=== PATIENT | male | born 1975 | race Native Hawaiian/Other Pacific Islander ===

== ENCOUNTER 2018-08-25 22:24 | Emergency (ER) | payer OTHER ==
--- NOTE | 2018-08-26 00:40 | XRay Report ---
PROCEDURE: LEFT FOREARM TECHNIQUE: LEFT forearm radiographs, AP and lateral views. CPT 05916 HISTORY: Trauma COMPARISONS: None . FINDINGS: Fracture (s) and/or Dislocation(s): None . Joint space(s): Normal . Soft tissues: Normal . Bone mineralization: Normal . Foreign bodies: None . IMPRESSION: Normal Examination . This document is electronically signed by Darell Yadav MD., August 26 2018 12:37:45 AM ET
--- NOTE | 2018-08-26 00:41 | XRay Report ---
PROCEDURE: XR HAND 2V LT TECHNIQUE: LEFT hand radiographs, PA and lateral views. HISTORY: pain and swelling L hand s/p injury COMPARISONS: None . FINDINGS: Fracture (s) and/or Dislocation(s): There is a nondisplaced fracture of the base of the fifth metaca rpal bone. . Alignment: Normal . Joint space(s): Normal . Soft tissues: There is soft tissue swelling of the ulnar aspect of the hand. . Bone mineralization: Normal . Foreign bodies: None . IMPRESSION: There is a nondisplaced fracture of the base of the fifth metacarpal bone. . There is no joint dislocation. There is soft tissue swelling of the ulnar aspect of the hand. . . This document is electronically signed by Darell Yadav MD., August 26 2018 12:39:29 AM ET
--- NOTE | 2018-08-26 00:49 | Emergency Department Report ---
ED Upper Extremity Inj HPI - General Chief Complaint: Extremity Injury, Upper Stated Complaint: LEFT ARM INJURY Time Seen by Provider: 08/26/18 00:43 Source: patient Mode of arrival: Ambulatory Limitations: No Limitations - History of Present Illness Initial Comments: Pt is a 42 yo male who was injured at work today. he is co l arm pain. Complaint: Injury to:: left, arm - Related Data Previous Rx's Medication Instructions Recorded Last Taken Type Ibuprofen [Motrin] 800 mg PO Q8HR PRN #20 tablet 08/26/18 Unknown Rx Allergies Allergy/AdvReac Type Severity Reaction Status Date / Time No Known Allergies Allergy Unverified 08/25/18 22:33 ED Review of Systems ROS: Stated complaint: LEFT ARM INJURY Other details as noted in HPI Comment: All other systems reviewed and negative ED Past Medical Hx - Past Medical History Previous Medical History?: No - Surgical History Past Surgical History?: No - Family History Family history: no significant - Social History Smoking Status: Never Smoker Substance Use Type: Alcohol - Medications Home Medications: Home Medications Medication Instructions Recorded Confirmed Last Taken Type Ibuprofen [Motrin] 800 mg PO Q8HR PRN #20 tablet 08/26/18 Unknown Rx ED Physical Exam - General Limitations: No Limitations General appearance: alert - Head Head exam: Present: atraumatic - Eye Eye exam: Present: normal appearance Pupils: Present: normal accommodation - ENT ENT exam: Present: mucous membranes moist - Neck Neck exam: Present: normal inspection - Cardiovascular Cardiovascular Exam: Present: regular rate - GI/Abdominal GI/Abdominal exam: Present: soft, normal bowel sounds - Expanded Upper Extremity Exam Left Elbow exam: Present: normal inspection Forearm Wrist exam: Present: tenderness, swelling, ecchymosis, erythema Hand Wrist exam: Present: tenderness, swelling, ecchymosis Hand L/R Back: 1 - pain and bruising Vascular: Present: normal capillary refill - Back Exam Back exam: Present: normal inspection - Neurological Exam Neurological exam: Present: alert, oriented X3 - Psychiatric Psychiatric exam: Present: normal affect, normal mood - Skin Skin exam: Present: warm, dry, ecchymosis ED Course Vital Signs 08/25/18 08/26/18 22:34 01:47 Temperature 97.7 F Pulse Rate 89 87 Respiratory 18 18 Rate Blood Pressure 134/91 Blood Pressure 138/93 [Right] O2 Sat by Pulse 97 98 Oximetry ED Medical Decision Making - Radiology Data Radiology results: report reviewed, image reviewed FX - Medical Decision Making xray noted concern for forearm fx as well immobilized hand/arm sling to follow up with ortho neurovasc intact radial and ulna pulse intact rapid cap refill dc home with dc plan of care and ortho follow up Vital Signs 08/25/18 08/26/18 22:34 01:47 Temperature 97.7 F Pulse Rate 89 87 Respiratory 18 18 Rate Blood Pressure 134/91 Blood Pressure 138/93 [Right] O2 Sat by Pulse 97 98 Oximetry Critical care attestation.: If time is entered above; I have spent that time in minutes in the direct care of this critically ill patient, excluding procedure time. ED Disposition Clinical Impression: Hand fracture, left, Contusion, Arm pain, left Disposition: DC-01 TO HOME OR SELFCARE Is pt being admited?: No Does the pt Need Aspirin: No Condition: Stable Instructions: Hand Fracture (ED) Additional Instructions: ICE REST ELEVATE SPLINT AND SLING FOLLOW UP WITH BONE DOCTOR SEE BELOW FOLLOW UP PATO MEDICATION ORDERED TODAY Prescriptions: Ibuprofen [Motrin] 800 mg PO Q8HR PRN #20 tablet PRN Reason: Pain , Severe (7-10) Referrals: ANTHONY ERNST MD [Staff Physician] - 3-5 Days Forms: Work/School Release Form(ED) Time of Disposition: 01:01 Print Language: FIJIAN
[2018-08-26] MEDS ORDERED: NORCO 5/325 PO ONE (00:52)
[2018-08-26 01:48] VITALS: BP 138/93
== END 2018-08-26 01:47 | disposition home or self-care (01) ==
LOC: ED 22:24
DX: S62.92XA Unspecified fracture of left hand, initial encounter for closed fracture (principal); M79.602 Pain in left arm; X58.XXXA Exposure to other specified factors, initial encounter; Y93.89 Activity, other specified; Y92.69 Other specified industrial and construction area as the place of occurrence of the external cause; Y99.0 Civilian activity done for income or pay

== ENCOUNTER 2018-12-13 14:03 | Emergency (ER) | payer SELFPAY ==
[2018-12-13 15:04] VITALS: BP 115/70
--- NOTE | 2018-12-13 15:08 | Event Note ---
ED Screening Note Date of service: 12/13/18 Time: 15:07 ED Screening Note: 43y/o male with a history of HTN and DM has c/o left foot pain after stepping on a nail. This initial assessment/diagnostic orders/clinical plan/treatment(s) is/are subject to change based on patients health status, clinical progression and re- assessment by fellow clinical providers in the ED. Further treatment and workup at subsequent clinical providers discretion. Patient/guardian urged not to elope from the ED as their condition may be serious if not clinically assessed and managed. Initial orders include:
[2018-12-13] MEDS ORDERED: NACL 0.9% 1000 ML 1,000 ML IV ONE ×2 (16:05→17:19)
[2018-12-13] MEDS ORDERED: ROCEPHIN/NS 1 GM/50 ML 1 GM/50 ML BAG IV ONE (16:05)
[2018-12-13 16:11] LABS: Mean Corpuscular HGB Conc 37 % (32-34); Mean Corpuscular Volume 97 fl (84-94); Platelet Count 168 K/mm3 (140-440); Red Blood Count 3.95 M/mm3 (3.65-5.03); Red Cell Distribution Width 12.7 % (13.2-15.2)
[2018-12-13 16:17] LABS: Hematocrit 38.2 % (35.5-45.6)
--- NOTE | 2018-12-13 16:21 | XRay Report ---
LEFT FOOT, 2 VIEWS INDICATION: stepped on nail now have redness and pain. COMPARISON: None. IMPRESSION: No acute osseous or soft tissue abnormality. Mild vascular calcifications are noted i n the distal foot suggesting peripheral vascular disease. No radiopaque foreign body is identified. Signer Name: Pepe Alvarez Jr, MD Signed: 12/13/2018 4:17 PM Workstation Name: [id number]
[2018-12-13 16:37] LABS: Alanine Aminotransferase 25 units/L (7-56); BUN/Creatinine Ratio 10; Blood Urea Nitrogen 5 mg/dL (9-20); Calcium 9.1 mg/dL (8.4-10.2); Hemolysis Index 5
--- NOTE | 2018-12-13 17:05 | Emergency Department Report ---
HPI - General Chief Complaint: Extremity Injury, Lower Time Seen by Provider: 12/13/18 15:53 - HPI HPI: PT IS A 43 YO WITH DM WHO STEPPED ON A NAIL AND SINCE HAS HAD INC FOOT PAIN. AMBULATORY ON ADMIT TO ACC BUT WITH LIMP. PAIN IS CONSTANT AND WORSE WITH WALKING. NOTHING WAS TAKEN HOSPITALITY HOST TO DEC PAIN. ED Past Medical Hx - Past Medical History Previous Medical History?: Yes Hx Hypertension: Yes Hx Diabetes: Yes - Surgical History Past Surgical History?: No - Social History Smoking Status: Never Smoker Substance Use Type: Alcohol - Medications Home Medications: Home Medications Medication Instructions Recorded Confirmed Last Taken Type Clindamycin [Clindamycin CAP] 300 mg PO Q8H #30 cap 12/13/18 Unknown Rx ED Review of Systems ROS: Stated complaint: LFT FOOT NAIL INJURY/PAIN Other details as noted in HPI Comment: All other systems reviewed and negative Physical Exam - Physical Exam Vital Signs: Vital Signs 12/13/18 15:00 Temperature 99.6 F Pulse Rate 111 H Respiratory 16 Rate Blood Pressure 115/70 O2 Sat by Pulse 100 Oximetry Physical Exam: ALERT AND ORIENTED S1S2 LUNGS CTA ABD SNT L FOOT WITH PUNCTURE WOUND TO BOTTOM AT BASE OF GREAT TOE NO DRAINAGE THE L FOOT HAS REDNESS ON THE DORSAL SURFACE. DP/PT PLUS 2 MINIMAL SWELLING CALF NON TENDER RAPID CAP REFILL NO OPEN WOUND ED Course Vital Signs 12/13/18 15:00 Temperature 99.6 F Pulse Rate 111 H Respiratory 16 Rate Blood Pressure 115/70 O2 Sat by Pulse 100 Oximetry ED Medical Decision Making - Lab Data Result diagrams: 12/13/18 15:45 12/13/18 15:45 - Radiology Data Radiology results: report reviewed, image reviewed NO FB - Medical Decision Making Labs 12/13/18 12/13/18 12/13/18 15:14 15:45 15:45 WBC 10.3 RBC 3.95 Hgb 14.0 Hct 38.2 MCV 97 H MCH 36 H MCHC 37 H RDW 12.7 L Plt Count 168 [place] % (Auto) Stoneworking Sander Add Manual Diff Complete Total Counted 100 Seg Neuts % (Manual) 62.0 Band Neutrophils % 0 Lymphocytes % (Manual) 17.0 Reactive Lymphs % (Man) 0 Monocytes % (Manual) 18.0 H Eosinophils % (Manual) 2.0 Basophils % (Manual) 1.0 Metamyelocytes % 0 Myelocytes % 0 Promyelocytes % 0 Blast Cells % 0 Nucleated RBC % Not Reportable Seg Neutrophils # Man 6.4 Band Neutrophils # 0.0 Lymphocytes # (Manual) 1.8 Abs React Lymphs (Man) 0.0 Monocytes # (Manual) 1.9 H Eosinophils # (Manual) 0.2 Basophils # (Manual) 0.1 Metamyelocytes # 0.0 Myelocytes # 0.0 Promyelocytes # 0.0 Blast Cells # 0.0 WBC Morphology Not Reportable Hypersegmented Neuts Not Reportable Hyposegmented Neuts Not Reportable Hypogranular Neuts Not Reportable Smudge Cells Not Reportable Toxic Granulation Not Reportable Toxic Vacuolation Not Reportable Dohle Bodies Not Reportable Pelger-Huet Anomaly Not Reportable [place] Rods Not Reportable Platelet Estimate Not Reportable Clumped Platelets Not Reportable Plt Clumps, EDTA Not Reportable Large Platelets Not Reportable Giant Platelets Not Reportable Platelet Satelliting Not Reportable Plt Morphology Comment Not Reportable RBC Morphology Normal Dimorphic RBCs Not Reportable Polychromasia Not Reportable Hypochromasia Not Reportable Poikilocytosis Not Reportable Anisocytosis Not Reportable Microcytosis Not Reportable Macrocytosis Not Reportable Spherocytes Not Reportable Pappenheimer Bodies Not Reportable Sickle Cells Not Reportable Target Cells Not Reportable Tear Drop Cells Not Reportable Ovalocytes Not Reportable Helmet Cells Not Reportable Velez-Diehlstadt Bodies Not Reportable [place] Rings Not Reportable [place] Cells Not Reportable Bite Cells Not Reportable Crenated Cell Not Reportable Elliptocytes Not Reportable Acanthocytes (Spur) Not Reportable Rouleaux Not Reportable Hemoglobin C Crystals Not Reportable Schistocytes Not Reportable Malaria parasites Not Reportable Angel Luis Bodies Not Reportable Hem Pathologist Commnt No Sodium 128 L Potassium 4.2 Chloride 89.1 L Carbon Dioxide 23 Anion Gap 20 BUN 5 L Creatinine 0.5 L Estimated GFR > 60 BUN/Creatinine Ratio 10 Glucose 318 H POC Glucose 321 H Lactic Acid Calcium 9.1 Total Bilirubin 1.10 AST 30 ALT 25 Alkaline Phosphatase 113 Total Protein 8.3 H Albumin 4.0 Albumin/Globulin Ratio 0.9 12/13/18 15:45 WBC RBC Hgb Hct MCV MCH MCHC RDW Plt Count [place] % (Auto) Add Manual Diff Total Counted Seg Neuts % (Manual) Band Neutrophils % Lymphocytes % (Manual) Reactive Lymphs % (Man) Monocytes % (Manual) Eosinophils % (Manual) Basophils % (Manual) Metamyelocytes % Myelocytes % Promyelocytes % Blast Cells % Nucleated RBC % Seg Neutrophils # Man Band Neutrophils # Lymphocytes # (Manual) Abs React Lymphs (Man) Monocytes # (Manual) Eosinophils # (Manual) Basophils # (Manual) Metamyelocytes # Myelocytes # Promyelocytes # Blast Cells # WBC Morphology Hypersegmented Neuts Hyposegmented Neuts Hypogranular Neuts Smudge Cells Toxic Granulation Toxic Vacuolation Dohle Bodies Pelger-Huet Anomaly [place] Rods Platelet Estimate Clumped Platelets Plt Clumps, EDTA Large Platelets Giant Platelets Platelet Satelliting Plt Morphology Comment RBC Morphology Dimorphic RBCs Polychromasia Hypochromasia Poikilocytosis Anisocytosis Microcytosis Macrocytosis Spherocytes Pappenheimer Bodies Sickle Cells Target Cells Tear Drop Cells Ovalocytes Helmet Cells Velez-Diehlstadt Bodies [place] Rings [place] Cells Bite Cells Crenated Cell Elliptocytes Acanthocytes (Spur) Rouleaux Hemoglobin C Crystals Schistocytes Malaria parasites Angel Luis Bodies Hem Pathologist Commnt Sodium Potassium Chloride Carbon Dioxide Anion Gap BUN Creatinine Estimated GFR BUN/Creatinine Ratio Glucose POC Glucose Lactic Acid 1.70 Calcium Total Bilirubin AST ALT Alkaline Phosphatase Total Protein Albumin Albumin/Globulin Ratio Vital Signs 12/13/18 15:00 Temperature 99.6 F Pulse Rate 111 H Respiratory 16 Rate Blood Pressure 115/70 O2 Sat by Pulse 100 Oximetry HR 100 ON EXAM AFTER 1ST LITER OF NS MEDICATED WITH IV ROCEPHIN TREATED FOR PAIN TDAP UPDATED BC SENT AND PENDING BLOOD SUGAR TREATED. WOUND CARE PROVIDED PT INSTRUCTED ON INFECTION OF FEET AND DM HE HAS ALSO BEEN INFORMED HIS BS MAY INC DUE TO INFECTION AND THAT HE NEEDS TO FOLLOW HIS CARB CONTROLLED DIET. PT HAS PCP PT WILL DC HOME WITH FAMILY AND FOLLOW UP WITH HIS PCP FOR ONGOING EVAL OF WOUND HEALING. THEY VERBALIZE UNDERSTANDING. RN TO DC WHEN BLOOD SUGAR TRENDING DOWN. - Differential Diagnosis RO OSTEOMY. Critical care attestation.: If time is entered above; I have spent that time in minutes in the direct care of this critically ill patient, excluding procedure time. ED Disposition Clinical Impression: Wound cellulitis, Diabetes mellitus Disposition: DC-01 TO HOME OR SELFCARE Is pt being admited?: No Does the pt Need Aspirin: No Condition: Stable Instructions: Cellulitis (ED) Additional Instructions: DIABETIC DIET CONTINUE YOUR HOME MEDS TAKE MED GIVEN TO YOU TODAY DRINK A LOT OF WATER KEEP FOOT CLEAN MONITOR YOUR BLOOD SUGAR; THE INFECTION CAN MAKE IT HIGHER THAN NORMAL FOLLOW UP WITH YOUR PCP THURSDAY TO BE SURE THIS IS GETTING BETTER YOU WERE GIVEN A TETANUS SHOT TODAY; WELL IV ANTIBIOTICS. THE XRAY OF YOUR FOOT IS NORMAL WITH NO FOREIGN BODY. Prescriptions: Clindamycin [Clindamycin CAP] 300 mg PO Q8H #30 cap Referrals: JOSE MIGUEL BRAGG MD [Staff Physician] - 3-5 Days Time of Disposition: 17:43 Print Language: TUVALUAN
[2018-12-13 17:09] LABS: RBC Morphology Normal; Total Cells Counted 100
[2018-12-13] MEDS ORDERED: HumuLIN R IV ONE (17:18)
[2018-12-13] MEDS ORDERED: BOOSTRIX IM ONE (17:19)
[2018-12-13] MEDS ORDERED: THERMAZENE 50 GRAM TP ONE (17:44)
[2018-12-13] MEDS ORDERED: IBUPROFEN PO ONE (17:44)
== END 2018-12-13 18:53 | disposition home or self-care (01) ==
LOC: ED 14:03
DX: T81.49XA Infection following a procedure, other surgical site, initial encounter (principal); I10 Essential (primary) hypertension; E11.9 Type 2 diabetes mellitus without complications; Y92.89 Other specified places as the place of occurrence of the external cause
CPT/HCPCS: 36415; 73620; 80053; 82140; 82805; 82962; 85007; 85025; 87040; 90471; 90715; 96365; 96375; 99284; J0696; J7030; J1815